=== PATIENT | male | born 1965 | race Caucasian/White ===

== ENCOUNTER → 2018-10-04 | Outpatient (CLI) | payer OTHER ==
--- NOTE | 2018-10-04 16:38 | XR ---
EXAMINATION TYPE: XR wrist complete BILATERAL DATE OF EXAM: 10/04/2018 COMPARISON: NONE HISTORY: 53-year-old male with pain, prior right-sided injury from a fall years ago. TECHNIQUE: 3 views each side FINDINGS: Left: Tiny ossific density adjacent to the ulnar styloid process. Radiocarpal and distal radioulnar joint a s well as the midcarpal compartment appear intact. Mild soft tissue swelling is present about the wri st. No acute fracture, subluxation, or dislocation. Degenerative spurring at the base of the thumb. 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 There is positive u lnar variance. Mild soft tissue swelling. The slight joint space narrowing at the radiocarpal joint. Otherwise, the midcarpal compartment appears intact. Mild degenerative spurring at the base of thumb. IMPRESSION: 1. Left: Tiny ossific density adjacent to the ulnar styloid process probably sequela of remote injury . Mild ulnar sided soft tissue swelling. Mild degenerative change at the base of the thumb. No acute osseous abnormality seen. 2. 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 Some generalized so ft tissue swelling is present. Possible early underlying degenerative change at the radiocarpal joint . Mild degenerative change at the base of the thumb.
== END | disposition home or self-care (01) ==
LOC: RADXRMAIN 14:49
PROVIDERS: ATTEND Family Medicine
DX: M84.43 Pathological fracture, ulna and radius (principal); M18.11 Unilateral primary osteoarthritis of first carpometacarpal joint, right hand; M18.12 Unilateral primary osteoarthritis of first carpometacarpal joint, left hand; M79.89 Other specified soft tissue disorders